=== PATIENT | female | born 1980 | race Caucasian/White ===

== ENCOUNTER → 2023-01-12 | Day surgery (SDC) | payer BC ==
[~2023-01-12] MED LIST: Lactated Ringers 1,000 ML IV SCH
[2023-01-12 12:37] VITALS: BP 110/55; PULSE 63
== END ==
LOC: CC.SDS 10:25
PROVIDERS: ATTEND Family Medicine
DX: D12.3 Benign neoplasm of transverse colon (principal); K52.9 Noninfective gastroenteritis and colitis, unspecified; F41.9 Anxiety disorder, unspecified; K57.30 Diverticulosis of large intestine without perforation or abscess without bleeding; M79.7 Fibromyalgia; G47.00 Insomnia, unspecified; G62.9 Polyneuropathy, unspecified; F17.200 Nicotine dependence, unspecified, uncomplicated; F32.A Depression, unspecified; Z88.2 Allergy status to sulfonamides; Z79.899 Other long term (current) drug therapy; Z80.0 Family history of malignant neoplasm of digestive organs
CPT/HCPCS: 00811; J7120

== ENCOUNTER 2024-06-10 23:02 | Inpatient (IN) | payer BC ==
[2024-06-10 23:21] LABS: BASOPHILS ABSOLUTE AUTO 0.06 10^3/uL (0.00-0.50); BASOPHILS PERCENT AUTO 0.6 % (0-1); EOSINOPHILS ABSOLUTE AUTO 0.34 10^3/uL (0.00-1.50); EOSINOPHILS PERCENT AUTO 3.4 % (0-6); HEMATOCRIT 40.7 % (37.0-47.0); HEMOGLOBIN 13.9 g/dL (12.0-16.0); IMMATURE GRAN ABSOLUTE AUTO 0.03 10^3/uL (0.00-0.49); IMMATURE GRAN PERCENT AUTO 0.3 % (0.0-4.9); LYMPHOCYTES ABSOLUTE AUTO 3.97 10^3/uL (0.60-5.00); LYMPHOCYTES PERCENT AUTO 39.7 % (24-44); MEAN CORPUSCULAR HEMOGLOBIN 29.9 pg (27.0-32.0); MEAN CORPUSCULAR HGB CONC 34.2 g/dL (32.0-36.0); MEAN CORPUSCULAR VOLUME 87.5 fL (83.0-97.0); PLATELET COUNT,PLT 270 10^3/uL (150-400); RED BLOOD CELL COUNT 4.65 x10^6/uL (4.00-5.50)
[2024-06-10 23:41] LABS: ALBUMIN 3.9 g/dL (3.4-5.0); BILIRUBIN TOTAL 0.3 mg/dL (0.0-1.0); CALCIUM 9.2 mg/dL (8.4-10.1); CREATININE 0.8 mg/dL (0.6-1.0); EST CRCL DRUG DOSING (CG) 77.49 mL/min; POTASSIUM,K 3.4 mEq/L (3.5-5.0); PROTEIN TOTAL,TP 7.1 g/dL (6.4-8.2)
[2024-06-10] MEDS: Metoprolol Tartrate 5 MG/5 ML SDV IVPUSH ONE (23:49)
[2024-06-11 00:02] LABS: TSH ULTRASENSITIVE 3.54 uIU/mL (0.36-5.60)
[2024-06-11] MEDS: Diltiazem 100 MG in Sodium Chloride 0.9% 100 ML IV SCH ×2 (00:14→09:25)
[2024-06-11] MEDS: Potassium Chloride 20 MEQ Tab.ER PO ONE (00:15)
[2024-06-11] MEDS: Sodium Chloride 0.9% 500 ML IV SCH (00:15)
[2024-06-11] MEDS: Diltiazem 25 MG/5 ML SDV IVPUSH ONE ×2 (00:16→16:53)
[2024-06-11] MEDS ORDERED: Docusate Sodium 100 MG Cap PO PRN (00:59)
[2024-06-11] MEDS ORDERED: Polyethylene Glycol 3350 Powder 17 GM Packet PO PRN (00:59)
[2024-06-11] MEDS ORDERED: Ondansetron 4 MG/2 ML SDV IV PRN (00:59)
[2024-06-11] MEDS ORDERED: Ondansetron 4 MG Tab.DIS PO PRN (00:59)
[2024-06-11] MEDS: Apixaban 5 MG Tab PO SCH (01:36)
[2024-06-11] MEDS ORDERED: Meloxicam 7.5 MG Tab PO PRN (05:26)
[2024-06-11] MEDS: Fish Oil/Omega-3 Fatty Acids 1 Gm Cap PO SCH (07:23)
[2024-06-11] MEDS: Metoprolol Succinate 25 MG Tab.ER PO SCH (07:23)
[2024-06-11] MEDS: Sertraline 25 MG Tab PO SCH (07:25)
[2024-06-11] MEDS: Furosemide 20 MG Tab PO SCH (07:25)
[2024-06-11] MEDS: Diltiazem 120 MG Cap.CD PO SCH (07:25)
[2024-06-11] MEDS: metFORMIN 500 MG Tab PO SCH (07:25)
[2024-06-11 07:50] LABS: BASOPHILS ABSOLUTE AUTO 0.06 10^3/uL (0.00-0.50); BASOPHILS PERCENT AUTO 0.6 % (0-1); EOSINOPHILS ABSOLUTE AUTO 0.43 10^3/uL (0.00-1.50); EOSINOPHILS PERCENT AUTO 4.5 % (0-6); HEMATOCRIT 41.7 % (37.0-47.0); HEMOGLOBIN 13.8 g/dL (12.0-16.0); IMMATURE GRAN ABSOLUTE AUTO 0.02 10^3/uL (0.00-0.49); IMMATURE GRAN PERCENT AUTO 0.2 % (0.0-4.9); LYMPHOCYTES ABSOLUTE AUTO 4.15 10^3/uL (0.60-5.00); LYMPHOCYTES PERCENT AUTO 43.9 % (24-44); MEAN CORPUSCULAR HEMOGLOBIN 29.3 pg (27.0-32.0); MEAN CORPUSCULAR HGB CONC 33.1 g/dL (32.0-36.0); MEAN CORPUSCULAR VOLUME 88.5 fL (83.0-97.0); MONOCYTES ABSOLUTE AUTO 0.71 10^3/uL (0.00-1.50); MONOCYTES PERCENT AUTO 7.5 % (0-10); NEUTROPHILS ABSOLUTE AUTO 4.09 x10^3/uL (1.80-8.00); NEUTROPHILS PERCENT AUTO 43.3 % (41-71); PLATELET COUNT,PLT 245 10^3/uL (150-400); RED BLOOD CELL COUNT 4.71 x10^6/uL (4.00-5.50); WHITE BLOOD CELL COUNT,WBC 9.5 10^3/uL (4.0-11.0)
[2024-06-11] MEDS ORDERED: Meloxicam 7.5 MG Tab PO SCH (08:00)
[2024-06-11 08:02] LABS: CALCIUM 8.3 mg/dL (8.4-10.1); CREATININE 0.8 mg/dL (0.6-1.0); EST CRCL DRUG DOSING (CG) 77.49 mL/min; POTASSIUM,K 3.6 mEq/L (3.5-5.0)
[2024-06-11] MEDS: Sodium Chloride 0.9% 1,000 ML IV SCH (09:26)
[2024-06-11] MEDS: FENOFIBRATE NANOCRYSTALLIZED 48 MG PO SCH (15:59)
[2024-06-11] MEDS: METFORMIN 500 MG PO SCH (15:59)
[2024-06-11] MEDS: Zolpidem 5 MG Tab PO SCH (20:02)
[2024-06-12 08:05] LABS: BASOPHILS ABSOLUTE AUTO 0.04 10^3/uL (0.00-0.50); BASOPHILS PERCENT AUTO 0.5 % (0-1); EOSINOPHILS ABSOLUTE AUTO 0.37 10^3/uL (0.00-1.50); EOSINOPHILS PERCENT AUTO 4.6 % (0-6); HEMATOCRIT 39.5 % (37.0-47.0); HEMOGLOBIN 12.9 g/dL (12.0-16.0); IMMATURE GRAN ABSOLUTE AUTO 0.02 10^3/uL (0.00-0.49); IMMATURE GRAN PERCENT AUTO 0.2 % (0.0-4.9); LYMPHOCYTES ABSOLUTE AUTO 4.22 10^3/uL (0.60-5.00); LYMPHOCYTES PERCENT AUTO 52.2 % (24-44); MEAN CORPUSCULAR HEMOGLOBIN 29.3 pg (27.0-32.0); MEAN CORPUSCULAR HGB CONC 32.7 g/dL (32.0-36.0); MEAN CORPUSCULAR VOLUME 89.6 fL (83.0-97.0); MONOCYTES ABSOLUTE AUTO 0.52 10^3/uL (0.00-1.50); MONOCYTES PERCENT AUTO 6.4 % (0-10); NEUTROPHILS ABSOLUTE AUTO 2.92 x10^3/uL (1.80-8.00); NEUTROPHILS PERCENT AUTO 36.1 % (41-71); PLATELET COUNT,PLT 248 10^3/uL (150-400); RED BLOOD CELL COUNT 4.41 x10^6/uL (4.00-5.50); WHITE BLOOD CELL COUNT,WBC 8.1 10^3/uL (4.0-11.0)
[2024-06-12] MEDS: Furosemide 80 MG Tab PO SCH (08:25)
[2024-06-12 08:28] LABS: CREATININE 0.7 mg/dL (0.6-1.0); EST CRCL DRUG DOSING (CG) 88.56 mL/min; MAGNESIUM 1.9 mg/dL (1.8-2.4); POTASSIUM,K 4.3 mEq/L (3.5-5.0)
[2024-06-12] MEDS: AMIODARONE IV ONE (12:56)
[2024-06-12] MEDS: Acetaminophen 325 MG Tab PO PRN (13:42)
[2024-06-12] MEDS: Amiodarone 360 MG/200 ML 360 MG/200 ML BAG IV ONE (16:20)
[2024-06-13] MEDS: Amiodarone 360 MG/200 ML 540 MG/300 ML BAG IV ONE (01:50)
[2024-06-13] MEDS: Amiodarone 200 MG Tab PO ONE (10:34)
[2024-06-13] MEDS: Amiodarone 200 MG Tab PO SCH (15:17)
[2024-06-13] MEDS ORDERED: Acetaminophen/HYDROcodone 325-5 MG Tab PO PRN (15:33)
[2024-06-13] MEDS: Diltiazem 120 MG Cap.CD PO ONE (19:31)
[2024-06-14 07:31] LABS: BASOPHILS ABSOLUTE AUTO 0.05 10^3/uL (0.00-0.50); BASOPHILS PERCENT AUTO 0.6 % (0-1); EOSINOPHILS ABSOLUTE AUTO 0.42 10^3/uL (0.00-1.50); EOSINOPHILS PERCENT AUTO 4.6 % (0-6); HEMATOCRIT 39.7 % (37.0-47.0); HEMOGLOBIN 13.3 g/dL (12.0-16.0); IMMATURE GRAN ABSOLUTE AUTO 0.02 10^3/uL (0.00-0.49); IMMATURE GRAN PERCENT AUTO 0.2 % (0.0-4.9); LYMPHOCYTES PERCENT AUTO 45.3 % (24-44); MEAN CORPUSCULAR HEMOGLOBIN 29.8 pg (27.0-32.0); MEAN CORPUSCULAR HGB CONC 33.5 g/dL (32.0-36.0); MONOCYTES PERCENT AUTO 6.6 % (0-10); NEUTROPHILS ABSOLUTE AUTO 3.86 x10^3/uL (1.80-8.00); NEUTROPHILS PERCENT AUTO 42.7 % (41-71); PLATELET COUNT,PLT 286 10^3/uL (150-400); RED BLOOD CELL COUNT 4.46 x10^6/uL (4.00-5.50); WHITE BLOOD CELL COUNT,WBC 9.1 10^3/uL (4.0-11.0)
[2024-06-14 07:48] LABS: ALBUMIN 3.9 g/dL (3.4-5.0); BILIRUBIN TOTAL 0.4 mg/dL (0.0-1.0); CALCIUM 8.5 mg/dL (8.4-10.1); CREATININE 0.8 mg/dL (0.6-1.0); EST CRCL DRUG DOSING (CG) 77.49 mL/min; POTASSIUM,K 3.8 mEq/L (3.5-5.0)
[2024-06-14] MEDS: Diltiazem 120 MG Cap.CD PO SCH (07:53)
[2024-06-14 07:55] VITALS: BP 111/69; PULSE 72
== END 2024-06-14 11:00 | disposition home or self-care (01) | DRG 201 ==
LOC: SUPCPDRO 23:02 → CC.ED 23:02 → UNDOADMIN 06-11 00:32 → CC.MS 06-11 00:32
PROVIDERS: ADMIT Nurse Practitioner; ATTEND Nurse Practitioner
DX: I48.91 Unspecified atrial fibrillation (principal); I27.20 Pulmonary hypertension, unspecified; K80.20 Calculus of gallbladder without cholecystitis without obstruction; F32.A Depression, unspecified; E11.9 Type 2 diabetes mellitus without complications; Z98.890 Other specified postprocedural states; Z90.710 Acquired absence of both cervix and uterus; Z98.51 Tubal ligation status; Z72.0 Tobacco use; Z79.899 Other long term (current) drug therapy; Z98.891 History of uterine scar from previous surgery; Z88.2 Allergy status to sulfonamides
CPT/HCPCS: 36415; 80048; 80053; 83615; 83735; 83880; 84443; 84484; 85025; 93005; 93010; 96365; 96375; 99285-25; A9270-GY; J0282; J3490; J7030; J7040

== ENCOUNTER 2025-02-21 06:28 | Day surgery (SDC) | payer BC ==
[2025-02-21] MEDS: Lactated Ringers 1,000 ML IV SCH (07:00)
[2025-02-21] MEDS ORDERED: Midazolam 1 MG/ML 2 ML SDV ONE (07:46)
[2025-02-21] MEDS ORDERED: Propofol 200 MG/20 ML SDV ONE (07:46)
[2025-02-21] MEDS ORDERED: fentaNYL 50 MCG/ML SDV ONE ×3 (07:46)
[2025-02-21] MEDS ORDERED: Dexamethasone 4 MG/ML SDV ONE ×2 (07:46)
[2025-02-21] MEDS ORDERED: Ondansetron 4 MG/2 ML SDV ONE (07:46)
[2025-02-21] MEDS: Lidocaine 1% with EPINEPHrine 1:100,000 20 ML MDV INJECT ONE (08:04)
[2025-02-21] MEDS: Lidocaine 1% with EPINEPHrine 1:100,000 20 ML MDV ONE (09:45)
[2025-02-21 11:51] VITALS: BP 116/68; PULSE 78
== END 2025-02-21 12:15 | disposition home or self-care (01) ==
LOC: CC.SDS 06:28
PROVIDERS: ATTEND Otolaryngology
DX: J34.2 Deviated nasal septum (principal); J34.3 Hypertrophy of nasal turbinates; E11.9 Type 2 diabetes mellitus without complications; F17.200 Nicotine dependence, unspecified, uncomplicated; Z79.84 Long term (current) use of oral hypoglycemic drugs
CPT/HCPCS: 00160; 30140; 30520; J1100; J1171; J2004; J2250; J2405; J2704; J3010; J7120; J3490